=== PATIENT | female | born 1980 | race Caucasian/White ===

== ENCOUNTER 2023-07-05 16:28 | Emergency (ER) | payer SELFPAY ==
[~2023-07-05] VITALS: Ht 172.7 cm; Wt 100.0 kg
[2023-07-05 16:34] VITALS: O2SAT 100
[2023-07-05] MEDS ORDERED: ACETAMINOPHEN 325MG TABLET PO ONE (17:45)
[2023-07-05] MEDS ORDERED: METH-653 MT (19:49)
[2023-07-05] MEDS ORDERED: KETOROLAC 60MG/2ML VIAL IM ONE (20:00)
[2023-07-05 20:21] VITALS: BP 118/63
[2023-07-05 20:24] VITALS: PULSE 65; RESP 18; TEMP 98.6
== END 2023-07-05 20:27 | disposition home or self-care (01) ==
LOC: ER 16:28
DX: M54.2 Cervicalgia (principal); M54.9 Dorsalgia, unspecified; M25.522 Pain in left elbow; V03.99XA Pedestrian with other conveyance injured in collision with car, pick-up truck or van, unspecified whether traffic or nontraffic accident, initial encounter; Y93.89 Activity, other specified; Y92.89 Other specified places as the place of occurrence of the external cause; Y99.8 Other external cause status
CPT/HCPCS: 71045; 73080; 70450; 72125; 99284; Z7610